=== PATIENT | male | born 1950 | race Asian ===

== ENCOUNTER 2016-07-09 10:06 | Inpatient (IN) | payer OTHER ==
[~2016-07-09 10:06] MED LIST: ALBUTEROL2 MG/5 ML PO; ALLO300T23 PO; ASPIRIN325 M1 PO; CARV12.5 PO; CARV6.25 PO; CLARITIN10 MG PO; CLON0.2D TD; CLOP75TA2 PO; LIPITOR10 MG PO; METOPROLOL25 M1 PO; RAMI10CA PO; SERT100T PO
== END 2016-08-09 08:00 | disposition still patient (30) ==
LOC: PAVC 10:06
PROVIDERS: ADMIT Internal Medicine
DX: Z51.89 Encounter for other specified aftercare (principal)

== ENCOUNTER 2016-08-09 09:00 | Inpatient (IN) | payer OTHER | END 2016-09-09 12:32 | disposition still patient (30) | LOC: PAVC 09:00 | PROVIDERS: ADMIT Internal Medicine | DX: Z51.89 Encounter for other specified aftercare (principal) ==

== ENCOUNTER 2016-09-09 12:45 | Inpatient (IN) | payer OTHER | END 2016-10-07 13:19 | disposition still patient (30) | LOC: PAVC 12:45 | PROVIDERS: ADMIT Internal Medicine | DX: Z51.89 Encounter for other specified aftercare (principal) ==

== ENCOUNTER 2016-10-07 13:29 | Inpatient (IN) | payer OTHER | END 2016-11-07 08:12 | disposition still patient (30) | LOC: PAVC 13:29 | PROVIDERS: ADMIT Internal Medicine | DX: Z51.89 Encounter for other specified aftercare (principal) ==

== ENCOUNTER 2016-10-16 02:37 | Outpatient (CLI) | payer OTHER ==
[2016-10-16 03:21] LABS: PLATELET COUNT 272 K/uL (142-355)
[2016-10-16 03:36] LABS: POTASSIUM 3.8 mmol/L (3.6-5.2); SODIUM 142 mmol/L (136-145)
== END 2016-10-16 19:14 | disposition home or self-care (01) ==
LOC: LAB 02:37
PROVIDERS: Internal Medicine
DX: I10 Essential (primary) hypertension (principal); I50.9 Heart failure, unspecified; M10.9 Gout, unspecified
CPT/HCPCS: 80053; 84550; 85027

== ENCOUNTER 2016-11-07 08:31 | Inpatient (IN) | payer OTHER | END 2016-12-07 10:55 | disposition still patient (30) | LOC: PAVC 08:31 | PROVIDERS: ADMIT Internal Medicine | DX: Z51.89 Encounter for other specified aftercare (principal) ==

== ENCOUNTER 2016-12-06 08:07 | Outpatient (CLI) | payer OTHER | END 2016-12-06 19:45 | disposition home or self-care (01) | LOC: LAB 08:07 | DX: Z16.24 Resistance to multiple antibiotics (principal) | CPT/HCPCS: 87081 ==

== ENCOUNTER 2016-12-07 11:15 | Inpatient (IN) | payer OTHER | END 2017-01-07 10:44 | disposition still patient (30) | LOC: PAVC 11:15 | PROVIDERS: ADMIT Internal Medicine | DX: Z51.89 Encounter for other specified aftercare (principal) ==

== ENCOUNTER 2017-01-07 10:52 | Inpatient (IN) | payer OTHER | END 2017-02-06 16:08 | disposition still patient (30) | LOC: PAVC 10:52 | PROVIDERS: ADMIT Internal Medicine | DX: Z51.89 Encounter for other specified aftercare (principal) ==

== ENCOUNTER 2017-02-06 16:24 | Inpatient (IN) | payer OTHER | END 2017-03-09 12:56 | disposition still patient (30) | LOC: PAVC 16:24 | PROVIDERS: ADMIT Internal Medicine | DX: Z51.89 Encounter for other specified aftercare (principal) ==

== ENCOUNTER 2017-03-09 13:57 | Inpatient (IN) | payer OTHER | END 2017-04-09 09:42 | disposition still patient (30) | LOC: PAVC 13:57 | PROVIDERS: ADMIT Internal Medicine | DX: Z51.89 Encounter for other specified aftercare (principal) ==

== ENCOUNTER 2017-04-09 10:19 | Inpatient (IN) | payer OTHER | END 2017-05-09 09:35 | disposition still patient (30) | LOC: PAVC 10:19 | PROVIDERS: ADMIT Internal Medicine | DX: Z51.89 Encounter for other specified aftercare (principal) ==

== ENCOUNTER 2017-04-15 06:18 | Outpatient (CLI) | payer OTHER ==
[2017-04-15 06:34] LABS: PLATELET COUNT 304 K/uL (142-355)
[2017-04-15 06:42] LABS: POTASSIUM 3.7 mmol/L (3.6-5.2); SODIUM 139 mmol/L (136-145)
== END 2017-04-15 07:20 | disposition home or self-care (01) ==
LOC: LAB 06:18
PROVIDERS: Internal Medicine
DX: I10 Essential (primary) hypertension (principal); I50.9 Heart failure, unspecified; M10.9 Gout, unspecified
CPT/HCPCS: 36415; 80053; 80061; 84550; 85027

== ENCOUNTER 2017-05-09 09:50 | Inpatient (IN) | payer OTHER | END 2017-06-09 14:18 | disposition still patient (30) | LOC: PAVC 09:50 | PROVIDERS: ADMIT Internal Medicine ==

== ENCOUNTER 2017-06-09 14:45 | Inpatient (IN) | payer OTHER | END 2017-07-09 10:28 | disposition still patient (30) | LOC: PAVC 14:45 | PROVIDERS: ADMIT Internal Medicine ==

== ENCOUNTER 2017-07-09 10:45 | Inpatient (IN) | payer OTHER | END 2017-08-09 10:56 | disposition still patient (30) | LOC: PAVC 10:45 | PROVIDERS: ADMIT Internal Medicine ==

== ENCOUNTER 2017-08-09 11:36 | Inpatient (IN) | payer OTHER | END 2017-09-09 11:11 | disposition still patient (30) | LOC: PAVC 11:36 | PROVIDERS: ADMIT Internal Medicine ==

== ENCOUNTER 2017-09-09 12:20 | Inpatient (IN) | payer OTHER | END 2017-10-07 10:36 | disposition still patient (30) | LOC: PAVC 12:20 | PROVIDERS: ADMIT Internal Medicine ==

== ENCOUNTER 2017-09-17 11:00 | Outpatient (CLI) | payer OTHER | END 2017-09-17 21:07 | disposition home or self-care (01) | LOC: RAD 11:00 | DX: R05 Cough (principal) ==

== ENCOUNTER 2017-10-07 10:47 | Inpatient (IN) | payer OTHER | END 2017-11-07 08:00 | disposition still patient (30) | LOC: PAVC 10:47 | PROVIDERS: ADMIT Internal Medicine ==

== ENCOUNTER 2017-10-15 05:20 | Outpatient (CLI) | payer OTHER ==
[2017-10-15 06:32] LABS: POTASSIUM 4.4 mmol/L (3.6-5.2)
[2017-10-15 06:37] LABS: PLATELET COUNT 271 K/uL (142-355)
== END 2017-10-15 21:16 | disposition home or self-care (01) ==
LOC: LAB 05:20
PROVIDERS: Internal Medicine
DX: Q24.5 Malformation of coronary vessels (principal)
CPT/HCPCS: 80053; 84550; 85027

== ENCOUNTER 2017-11-07 09:00 | Inpatient (IN) | payer OTHER | END 2017-12-07 10:26 | disposition still patient (30) | LOC: PAVC 09:00 | PROVIDERS: ADMIT Internal Medicine ==

== ENCOUNTER 2017-12-07 10:38 | Inpatient (IN) | payer OTHER | END 2018-01-07 10:22 | disposition still patient (30) | LOC: PAVC 10:38 | PROVIDERS: ADMIT Internal Medicine ==

== ENCOUNTER 2018-01-07 10:41 | Inpatient (IN) | payer OTHER | END 2018-02-06 15:04 | disposition still patient (30) | LOC: PAVC 10:41 | PROVIDERS: ADMIT Internal Medicine ==

== ENCOUNTER 2018-01-20 13:10 | Outpatient (CLI) | payer OTHER | END 2018-01-20 20:10 | disposition home or self-care (01) | LOC: US 13:10 | DX: I73.9 Peripheral vascular disease, unspecified (principal) ==

== ENCOUNTER 2018-02-06 15:23 | Inpatient (IN) | payer OTHER | END 2018-03-09 08:00 | disposition still patient (30) | LOC: PAVC 15:23 | PROVIDERS: ADMIT Internal Medicine ==

== ENCOUNTER 2018-03-09 09:00 | Inpatient (IN) | payer OTHER | END 2018-04-09 11:10 | disposition still patient (30) | LOC: PAVC 09:00 | PROVIDERS: ADMIT Internal Medicine ==

== ENCOUNTER 2018-04-09 11:26 | Inpatient (IN) | payer OTHER | END 2018-05-09 14:31 | disposition still patient (30) | LOC: PAVC 11:26 | PROVIDERS: ADMIT Internal Medicine ==

== ENCOUNTER 2018-04-15 05:55 | Outpatient (CLI) | payer OTHER ==
[2018-04-15 06:22] LABS: PLATELET COUNT 334 K/uL (142-355)
[2018-04-15 06:41] LABS: POTASSIUM 4.1 mmol/L (3.6-5.2)
== END 2018-04-15 23:23 | disposition home or self-care (01) ==
LOC: LAB 05:55
PROVIDERS: Internal Medicine
DX: M10.9 Gout, unspecified (principal); F03.90 Unspecified dementia, unspecified severity, without behavioral disturbance, psychotic disturbance, mood disturbance, and anxiety; Z79.899 Other long term (current) drug therapy
CPT/HCPCS: 36415; 80053; 80061; 84550; 85027

== ENCOUNTER 2018-05-09 15:19 | Inpatient (IN) | payer OTHER | END 2018-06-09 10:30 | disposition still patient (30) | LOC: PAVC 15:19 | PROVIDERS: ADMIT Internal Medicine ==

== ENCOUNTER 2018-06-09 11:07 | Inpatient (IN) | payer OTHER | END 2018-07-09 07:19 | disposition still patient (30) | LOC: PAVC 11:07 | PROVIDERS: ADMIT Internal Medicine ==

== ENCOUNTER 2018-06-16 06:24 | Outpatient (CLI) | payer OTHER | END 2018-06-16 20:08 | disposition home or self-care (01) | LOC: LAB 06:24 | DX: E55.9 Vitamin D deficiency, unspecified (principal) | CPT/HCPCS: 36415; 82306 ==

== ENCOUNTER 2018-07-09 07:36 | Inpatient (IN) | payer OTHER | END 2018-08-09 09:35 | disposition still patient (30) | LOC: PAVC 07:36 | PROVIDERS: ADMIT Internal Medicine ==

== ENCOUNTER 2018-08-09 09:45 | Inpatient (IN) | payer OTHER | END 2018-09-09 09:36 | disposition still patient (30) | LOC: PAVC 09:45 | PROVIDERS: ADMIT Internal Medicine ==

== ENCOUNTER 2018-09-09 09:49 | Inpatient (IN) | payer OTHER | END 2018-10-07 12:10 | disposition still patient (30) | LOC: PAVC 09:49 | PROVIDERS: ADMIT Internal Medicine | CPT/HCPCS: 82310 ==

== ENCOUNTER 2018-09-15 03:47 | Outpatient (CLI) | payer OTHER | END 2018-09-15 22:19 | LOC: LAB 03:47 | DX: E55.9 Vitamin D deficiency, unspecified (principal) | CPT/HCPCS: 82306 ==

== ENCOUNTER 2018-10-07 12:21 | Inpatient (IN) | payer OTHER | END 2018-11-07 12:29 | disposition still patient (30) | LOC: PAVC 12:21 | PROVIDERS: ADMIT Internal Medicine ==

== ENCOUNTER 2018-10-17 05:05 | Outpatient (CLI) | payer OTHER ==
[2018-10-17 05:59] LABS: PLATELET COUNT 361 K/uL (142-355)
[2018-10-17 06:46] LABS: POTASSIUM 4.1 mmol/L (3.6-5.2)
== END 2018-10-17 19:27 | disposition home or self-care (01) ==
LOC: LAB 05:05
PROVIDERS: Internal Medicine
DX: M10.9 Gout, unspecified (principal)
CPT/HCPCS: 36415; 80053; 84550; 85027

== ENCOUNTER 2018-11-07 12:42 | Inpatient (IN) | payer OTHER | END 2018-12-07 13:41 | disposition still patient (30) | LOC: PAVC 12:42 | PROVIDERS: ADMIT Internal Medicine ==

== ENCOUNTER 2018-11-22 04:36 | Outpatient (CLI) | payer OTHER | END 2018-11-22 22:44 | disposition home or self-care (01) | LOC: LAB 04:36 | DX: Z12.5 Encounter for screening for malignant neoplasm of prostate (principal) | CPT/HCPCS: 84153 ==

== ENCOUNTER 2018-12-07 13:56 | Inpatient (IN) | payer OTHER | END 2019-01-07 09:38 | disposition still patient (30) | LOC: PAVC 13:56 | PROVIDERS: ADMIT Internal Medicine | DX: Z51.89 Encounter for other specified aftercare (principal) ==

== ENCOUNTER 2018-12-29 06:23 | Outpatient (CLI) | payer OTHER | END 2018-12-29 20:45 | disposition home or self-care (01) | LOC: LABW 06:23 → LAB 06:23 | DX: D51.8 Other vitamin B12 deficiency anemias (principal); E55.9 Vitamin D deficiency, unspecified | CPT/HCPCS: 36415; 82306 ==

== ENCOUNTER 2019-01-07 09:57 | Inpatient (IN) | payer OTHER | END 2019-02-06 11:34 | disposition still patient (30) | LOC: PAVC 09:57 | PROVIDERS: ADMIT Internal Medicine ==

== ENCOUNTER 2019-02-06 11:56 | Inpatient (IN) | payer OTHER | END 2019-03-09 11:52 | disposition still patient (30) | LOC: PAVC 11:56 | PROVIDERS: ADMIT Internal Medicine ==

== ENCOUNTER 2019-03-09 12:59 | Inpatient (IN) | payer OTHER | END 2019-04-09 17:15 | disposition still patient (30) | LOC: PAVC 12:59 | PROVIDERS: ADMIT Internal Medicine ==

== ENCOUNTER 2019-04-09 17:33 | Inpatient (IN) | payer OTHER | END 2019-05-09 12:56 | disposition still patient (30) | LOC: PAVC 17:33 | PROVIDERS: ADMIT Internal Medicine ==

== ENCOUNTER 2019-04-11 09:43 | Outpatient (CLI) | payer OTHER ==
[2019-04-11 10:05] LABS: POTASSIUM 4.4 mmol/L (3.6-5.2)
[2019-04-11 10:14] LABS: PLATELET COUNT 381 K/uL (142-355)
== END 2019-04-11 22:52 | disposition home or self-care (01) ==
LOC: LAB 09:43
PROVIDERS: Internal Medicine
DX: M10.9 Gout, unspecified (principal); I10 Essential (primary) hypertension; I25.119 Atherosclerotic heart disease of native coronary artery with unspecified angina pectoris; E78.49 Other hyperlipidemia
CPT/HCPCS: 80053; 80061; 84550; 85027

== ENCOUNTER 2019-05-09 13:22 | Inpatient (IN) | payer OTHER | END 2019-06-09 14:04 | disposition still patient (30) | LOC: PAVC 13:22 | PROVIDERS: ADMIT Internal Medicine ==

== ENCOUNTER 2019-06-09 14:23 | Inpatient (IN) | payer OTHER | END 2019-07-09 08:00 | disposition still patient (30) | LOC: PAVC 14:23 | PROVIDERS: ADMIT Internal Medicine ==

== ENCOUNTER 2019-06-15 04:55 | Outpatient (CLI) | payer OTHER | END 2019-06-15 20:38 | disposition home or self-care (01) | LOC: LAB 04:55 | DX: E55.9 Vitamin D deficiency, unspecified (principal) | CPT/HCPCS: 82306 ==

== ENCOUNTER 2019-07-09 11:00 | Inpatient (IN) | payer OTHER | END 2019-08-09 09:29 | disposition still patient (30) | LOC: PAVC 11:00 | PROVIDERS: ADMIT Internal Medicine ==

== ENCOUNTER 2019-08-09 09:46 | Inpatient (IN) | payer OTHER | END 2019-09-09 10:44 | disposition still patient (30) | LOC: PAVC 09:46 | PROVIDERS: ADMIT Internal Medicine ==

== ENCOUNTER 2019-09-09 11:04 | Inpatient (IN) | payer OTHER | END 2019-10-08 14:09 | disposition still patient (30) | LOC: PAVC 11:04 | PROVIDERS: ADMIT Internal Medicine ==

== ENCOUNTER 2019-10-08 14:27 | Inpatient (IN) | payer OTHER | END 2019-11-08 11:34 | disposition still patient (30) | LOC: PAVC 14:27 | PROVIDERS: ADMIT Internal Medicine ==

== ENCOUNTER 2019-10-09 06:03 | Outpatient (CLI) | payer OTHER ==
[2019-10-09 06:46] LABS: PLATELET COUNT 418 K/uL (142-355)
[2019-10-09 07:04] LABS: POTASSIUM 4.5 mmol/L (3.6-5.2)
== END 2019-10-09 19:09 | disposition home or self-care (01) ==
LOC: LAB 06:03
PROVIDERS: Internal Medicine
DX: I25.10 Atherosclerotic heart disease of native coronary artery without angina pectoris (principal); I50.9 Heart failure, unspecified; I10 Essential (primary) hypertension; E55.9 Vitamin D deficiency, unspecified
CPT/HCPCS: 80053; 82306; 84550; 85027

== ENCOUNTER 2019-11-08 12:01 | Inpatient (IN) | payer OTHER ==
[2019-12-02] MEDS ORDERED: ASCORBIC ACID 250 MG PO (17:57)
[2019-12-02] MEDS ORDERED: BENEPROTEIN6 GM PO (17:58)
[2019-12-02] MEDS ORDERED: CLON0.3D TD (17:59)
[2019-12-02] MEDS ORDERED: MIRALAX3350 N1 PO (18:01)
[2019-12-02] MEDS ORDERED: VITA D-1000 PO (18:02)
[2019-12-02] MEDS ORDERED: ZESTRIL40 MG PO (18:03)
[2019-12-02] MEDS ORDERED: AZIT250T3 PO (18:04)
[2019-12-02] MEDS ORDERED: CETI10TA PO (18:05)
[2019-12-02] MEDS ORDERED: ALLO100T22 PO (18:05)
[2019-12-02] MEDS ORDERED: DOCU100C10 PO (18:07)
[2019-12-02] MEDS ORDERED: [UNRECOGNIZED DRUG - CODE] PO (18:07)
[2019-12-02] MEDS ORDERED: CARV25TA PO (18:08)
[2019-12-02] MEDS ORDERED: AMLODIPINE BESYLATE PO (18:09)
[2019-12-02] MEDS ORDERED: COSOPT1 ML OPTH (18:09)
[2019-12-02] MEDS ORDERED: HYDR200T3 PO (18:10)
== END 2019-12-08 11:20 | disposition still patient (30) ==
LOC: PAVC 12:01
PROVIDERS: ADMIT Internal Medicine

== ENCOUNTER 2019-11-10 14:30 | Outpatient (CLI) | payer OTHER | END 2019-11-10 23:32 | disposition home or self-care (01) | LOC: LAB 14:30 | DX: N39.0 Urinary tract infection, site not specified (principal); R41.82 Altered mental status, unspecified | CPT/HCPCS: 81000; 87077; 87086; 87088; 87186 ==

== ENCOUNTER 2019-11-21 18:51 | Outpatient (CLI) | payer OTHER | END 2019-11-21 22:26 | disposition home or self-care (01) | LOC: LABW 18:51 | DX: E07.89 Other specified disorders of thyroid (principal); R82.998 Other abnormal findings in urine | CPT/HCPCS: 81000 ==

== ENCOUNTER 2019-12-01 17:18 | Emergency (ER) | payer OTHER ==
[~2019-12-01] VITALS: Ht 175.3 cm; Wt 77.1 kg
[2019-12-01 18:27] LABS: PLATELET COUNT 309 K/uL (142-355)
[2019-12-01 18:35] LABS: POTASSIUM 3.7 mmol/L (3.6-5.2)
[2019-12-01 21:05] VITALS: BP 105/76; TEMP 99
[2019-12-02] MEDS ORDERED: ASCORBIC ACID 250 MG PO (17:57)
[2019-12-02] MEDS ORDERED: BENEPROTEIN6 GM PO (17:58)
[2019-12-02] MEDS ORDERED: CLON0.3D TD (17:59)
[2019-12-02] MEDS ORDERED: MIRALAX3350 N1 PO (18:01)
[2019-12-02] MEDS ORDERED: VITA D-1000 PO (18:02)
[2019-12-02] MEDS ORDERED: ZESTRIL40 MG PO (18:03)
[2019-12-02] MEDS ORDERED: AZIT250T3 PO (18:04)
[2019-12-02] MEDS ORDERED: ALLO100T22 PO (18:05)
[2019-12-02] MEDS ORDERED: CETI10TA PO (18:05)
[2019-12-02] MEDS ORDERED: [UNRECOGNIZED DRUG - CODE] PO (18:07)
[2019-12-02] MEDS ORDERED: DOCU100C10 PO (18:07)
[2019-12-02] MEDS ORDERED: CARV25TA PO (18:08)
[2019-12-02] MEDS ORDERED: AMLODIPINE BESYLATE PO (18:09)
[2019-12-02] MEDS ORDERED: COSOPT1 ML OPTH (18:09)
[2019-12-02] MEDS ORDERED: HYDR200T3 PO (18:10)
== END 2019-12-01 21:10 ==
LOC: ED 17:18
PROVIDERS: Family Medicine
DX: J12.89 Other viral pneumonia (principal); U07.1 COVID-19
CPT/HCPCS: 36415; 80053; 81000; 84484; 85027; 93005; 99284

== ENCOUNTER 2019-12-02 09:50 | Inpatient (IN) | payer OTHER ==
[2019-12-02] VITALS (8 sets, daily range): BP systolic 103–146; BP diastolic 70–90; TEMP 97.1–98.7; Ht 172.7 cm; Wt 51.3 kg
[~2019-12-02] VITALS: Ht 172.7 cm; Wt 51.3 kg
[2019-12-02 12:01] LABS: PLATELET COUNT 315 K/uL (142-355)
[2019-12-02 12:05] LABS: POTASSIUM 3.6 mmol/L (3.6-5.2)
[2019-12-02] MEDS ORDERED: ASCORBIC ACID 250 MG PO (17:57)
[2019-12-02] MEDS ORDERED: BENEPROTEIN6 GM PO (17:58)
[2019-12-02] MEDS ORDERED: CLON0.3D TD (17:59)
[2019-12-02] MEDS ORDERED: MIRALAX3350 N1 PO (18:01)
[2019-12-02] MEDS ORDERED: VITA D-1000 PO (18:02)
[2019-12-02] MEDS ORDERED: ZESTRIL40 MG PO (18:03)
[2019-12-02] MEDS ORDERED: AZIT250T3 PO (18:04)
[2019-12-02] MEDS ORDERED: CETI10TA PO (18:05)
[2019-12-02] MEDS ORDERED: ALLO100T22 PO (18:05)
[2019-12-02] MEDS ORDERED: [UNRECOGNIZED DRUG - CODE] PO (18:07)
[2019-12-02] MEDS ORDERED: DOCU100C10 PO (18:07)
[2019-12-02] MEDS ORDERED: CARV25TA PO (18:08)
[2019-12-02] MEDS ORDERED: AMLODIPINE BESYLATE PO (18:09)
[2019-12-02] MEDS ORDERED: COSOPT1 ML OPTH (18:09)
[2019-12-02] MEDS ORDERED: HYDR200T3 PO (18:10)
[2019-12-03] VITALS (21 sets, daily range): BP systolic 107–133; BP diastolic 77–93; TEMP 98.2–98.8
[2019-12-03 08:25] LABS: PLATELET COUNT 383 K/uL (142-355)
[2019-12-03 08:34] LABS: POTASSIUM 3.3 mmol/L (3.6-5.2)
[2019-12-04] VITALS (19 sets, daily range): BP systolic 103–148; BP diastolic 70–99; TEMP 96.9–99.9
[2019-12-04 06:12] LABS: PLATELET COUNT 388 K/uL (142-355)
[2019-12-04 06:32] LABS: POTASSIUM 2.9 mmol/L (3.6-5.2)
[2019-12-05] VITALS (22 sets, daily range): BP systolic 121–196; BP diastolic 84–117; TEMP 97.6–98.4
[2019-12-05 06:09] LABS: PLATELET COUNT 393 K/uL (142-355)
[2019-12-06] VITALS (23 sets, daily range): BP systolic 135–207; BP diastolic 83–102; TEMP 97.6–99.1
[2019-12-06 06:23] LABS: PLATELET COUNT 458 K/uL (142-355)
[2019-12-07] VITALS (21 sets, daily range): BP systolic 114–183; BP diastolic 81–121; TEMP 97.8–98.9
[2019-12-07 10:52] LABS: PLATELET COUNT 545 K/uL (142-355)
[2019-12-07 11:06] LABS: POTASSIUM 3.3 mmol/L (3.6-5.2)
[2019-12-08] VITALS (16 sets, daily range): BP systolic 127–183; BP diastolic 85–104; TEMP 98.7–99.3
[2019-12-09] VITALS (25 sets, daily range): BP systolic 130–177; BP diastolic 85–103; TEMP 98.1–99.7
[2019-12-09 10:41] LABS: PLATELET COUNT 500 K/uL (142-355)
[2019-12-09 10:52] LABS: POTASSIUM 3.8 mmol/L (3.6-5.2)
[2019-12-10] VITALS (23 sets, daily range): BP systolic 130–169; BP diastolic 82–106; TEMP 96.8–98.7
[2019-12-11] VITALS (21 sets, daily range): BP systolic 125–175; BP diastolic 91–118; TEMP 96.9–98.3
[2019-12-12] VITALS (22 sets, daily range): BP systolic 123–174; BP diastolic 77–115; TEMP 97.6–98
[2019-12-12 06:50] LABS: PLATELET COUNT 656 K/uL (142-355)
[2019-12-12 06:57] LABS: POTASSIUM 4.3 mmol/L (3.6-5.2)
[2019-12-13] VITALS (24 sets, daily range): BP systolic 121–161; BP diastolic 80–113; TEMP 97.5–98.9
[2019-12-13 05:57] LABS: PLATELET COUNT 466 K/uL (142-355)
[2019-12-13 06:26] LABS: POTASSIUM 4.4 mmol/L (3.6-5.2)
[2019-12-14] VITALS (23 sets, daily range): BP systolic 128–168; BP diastolic 92–125; TEMP 97.7–98.9
[2019-12-14 06:14] LABS: PLATELET COUNT 439 K/uL (142-355)
[2019-12-14 06:25] LABS: POTASSIUM 4.1 mmol/L (3.6-5.2)
[2019-12-15] VITALS (15 sets, daily range): BP systolic 129–167; BP diastolic 89–115; TEMP 96.9–98.1
[2019-12-15 11:00] LABS: PLATELET COUNT 494 K/uL (142-355)
[2019-12-15 11:12] LABS: POTASSIUM 4.1 mmol/L (3.6-5.2)
== END 2019-12-15 14:15 | DRG 177 ==
LOC: MED/SURG 09:50 → PCU 09:50
PROVIDERS: Internal Medicine; ADMIT Internal Medicine Endocrinology, Diabetes & Metabolism
DX: U07.1 COVID-19 (principal); J96.01 Acute respiratory failure with hypoxia; J18.8 Other pneumonia, unspecified organism; G40.802 Other epilepsy, not intractable, without status epilepticus; N17.9 Acute kidney failure, unspecified; E46 Unspecified protein-calorie malnutrition; I25.10 Atherosclerotic heart disease of native coronary artery without angina pectoris; E78.49 Other hyperlipidemia; Z86.73 Personal history of transient ischemic attack (TIA), and cerebral infarction without residual deficits; M10.9 Gout, unspecified; I95.89 Other hypotension; I10 Essential (primary) hypertension; E87.6 Hypokalemia
CPT/HCPCS: 36415; 80053; 83735; 85027; 87070; 87205; 94760; 97667; J0360; J0696; J1650; J2060; J3490; J7120

== ENCOUNTER 2020-01-08 11:32 | Inpatient (IN) | payer OTHER ==
[~2020-01-08 11:32] MED LIST changes: +ALLO100T22 PO; +AMLODIPINE BESYLATE PO; +ASCORBIC ACID 250 MG PO; +AZIT250T3 PO; +BENEPROTEIN6 GM PO; +CARV25TA PO; +CETI10TA PO; +CLON0.3D TD; +COSOPT1 ML OPTH; +DOCU100C10 PO; +HYDR200T3 PO; +MIRALAX3350 N1 PO; +VITA D-1000 PO; +ZESTRIL40 MG PO; +[UNRECOGNIZED DRUG - CODE] PO
== END 2020-02-07 11:54 | disposition still patient (30) ==
LOC: PAVC 11:32
PROVIDERS: ADMIT Internal Medicine
CPT/HCPCS: 87635; U0002

== ENCOUNTER 2020-02-07 12:01 | Inpatient (IN) | payer OTHER | END 2020-03-09 10:11 | disposition still patient (30) | LOC: PAVC 12:01 | PROVIDERS: ADMIT Internal Medicine ==

== ENCOUNTER 2020-03-09 10:20 | Inpatient (IN) | payer OTHER ==
[2020-03-24] MEDS ORDERED: MULTIVITAMI1 PO (05:07)
[2020-03-28] MEDS ORDERED: METH5TAB6 PO (13:29)
[2020-03-28] MEDS ORDERED: LEVAQUIN250 MG PEG (13:30)
[2020-04-08] MEDS ORDERED: CARV6.25 PO (12:34)
[2020-04-08] MEDS ORDERED: DIGO0.2549 PO (12:35)
[2020-04-08] MEDS ORDERED: DILT30TA24 PO (12:36)
[2020-04-08] MEDS ORDERED: FAMOTIDINE20 MG PO (12:36)
== END 2020-04-09 14:00 | disposition still patient (30) ==
LOC: PAVC 10:20
PROVIDERS: ADMIT Internal Medicine
DX: J69.0 Pneumonitis due to inhalation of food and vomit (principal); R13.12 Dysphagia, oropharyngeal phase; F03.91 Unspecified dementia, unspecified severity, with behavioral disturbance; I69.959 Hemiplegia and hemiparesis following unspecified cerebrovascular disease affecting unspecified side; H54.8 Legal blindness, as defined in USA; I10 Essential (primary) hypertension; I25.10 Atherosclerotic heart disease of native coronary artery without angina pectoris; E55.9 Vitamin D deficiency, unspecified

== ENCOUNTER 2020-03-22 11:50 | Outpatient (CLI) | payer OTHER ==
[2020-03-22 12:19] LABS: PLATELET COUNT 627 K/uL (142-355)
[2020-03-22 12:35] LABS: POTASSIUM 5.1 mmol/L (3.6-5.2)
== END 2020-03-22 23:02 | disposition home or self-care (01) ==
LOC: LAB 11:50
PROVIDERS: Internal Medicine
DX: R41.82 Altered mental status, unspecified (principal)
CPT/HCPCS: 80053; 85027

== ENCOUNTER 2020-03-23 19:56 | Inpatient (IN) | payer OTHER ==
[~2020-03-23] VITALS: Ht 172.7 cm; Wt 70.6 kg
[2020-03-23 20:00] VITALS: BP 152/91; TEMP 98.7
[2020-03-23 20:30] VITALS: BP 152/91
[2020-03-23 21:30] LABS: POTASSIUM 4.4 mmol/L (3.6-5.2); SODIUM 147 mmol/L (136-145)
[2020-03-23 21:40] LABS: PARTIAL THROMBOPLASTIN TIME 27.6 SECONDS (24.5-33.6)
[2020-03-23 21:46] LABS: PLATELET COUNT 586 K/uL (142-355)
[2020-03-23 23:00] VITALS: BP 97/73
[2020-03-24] VITALS (7 sets, daily range): BP systolic 98–138; BP diastolic 60–87; TEMP 96.4–99.3; Ht 172.7 cm; Wt 70.6 kg
[2020-03-24] MEDS ORDERED: MULTIVITAMI1 PO (05:07)
[2020-03-24 05:42] LABS: POTASSIUM 4.2 mmol/L (3.6-5.2)
[2020-03-24 05:53] LABS: PLATELET COUNT 469 K/uL (142-355)
[2020-03-25 04:00] VITALS: BP 115/82; TEMP 98.4
[2020-03-25 05:52] LABS: PLATELET COUNT 423 K/uL (142-355)
[2020-03-25 05:58] LABS: POTASSIUM 3.9 mmol/L (3.6-5.2)
[2020-03-25 08:00] VITALS: BP 106/78; TEMP 97.3
[2020-03-25 12:00] VITALS: BP 102/70; TEMP 98.6
[2020-03-25 16:00] VITALS: BP 106/74; TEMP 97.9
[2020-03-25 20:00] VITALS: BP 113/73; TEMP 98.5
[2020-03-26 00:11] VITALS: BP 112/76; TEMP 98.8
[2020-03-26 04:00] VITALS: BP 113/76; TEMP 98.1
[2020-03-26 05:42] LABS: PLATELET COUNT 373 K/uL (142-355)
[2020-03-26 08:00] VITALS: BP 131/87; TEMP 97.9
[2020-03-26 12:00] VITALS: BP 111/71; TEMP 97.5
[2020-03-26 16:00] VITALS: BP 127/97; TEMP 97.9
[2020-03-26 20:00] VITALS: BP 133/90; TEMP 98.3
[2020-03-27] VITALS (11 sets, daily range): BP systolic 121–150; BP diastolic 55–99; TEMP 97.4–98.8
[2020-03-27 05:32] LABS: POTASSIUM 4.3 mmol/L (3.6-5.2)
[2020-03-27 05:37] LABS: PLATELET COUNT 431 K/uL (142-355)
[2020-03-28 03:30] VITALS: BP 136/98; TEMP 98.4
[2020-03-28 08:00] VITALS: BP 142/79; TEMP 97.8
[2020-03-28 12:00] VITALS: BP 134/84; TEMP 97.9
[2020-03-28] MEDS ORDERED: METH5TAB6 PO (13:29)
[2020-03-28] MEDS ORDERED: LEVAQUIN250 MG PEG (13:30)
[2020-03-28 16:00] VITALS: BP 135/72; TEMP 98.1
[2020-03-28 20:21] VITALS: BP 131/101; TEMP 98.5
[2020-03-28 23:46] VITALS: BP 130/87; TEMP 98.9
[2020-03-29 03:32] VITALS: BP 126/79; TEMP 98.6
[2020-03-29 08:00] VITALS: BP 112/83; TEMP 97.6
== END 2020-03-29 09:23 | DRG 177 ==
LOC: ED 19:56 → MED/SURG 22:31
PROVIDERS: Internal Medicine; Internal Medicine Endocrinology, Diabetes & Metabolism; ADMIT Family Medicine
DX: J69.0 Pneumonitis due to inhalation of food and vomit (principal); J96.01 Acute respiratory failure with hypoxia; N17.9 Acute kidney failure, unspecified; E87.1 Hypo-osmolality and hyponatremia; I10 Essential (primary) hypertension; I25.10 Atherosclerotic heart disease of native coronary artery without angina pectoris; F03.90 Unspecified dementia, unspecified severity, without behavioral disturbance, psychotic disturbance, mood disturbance, and anxiety; I69.891 Dysphagia following other cerebrovascular disease; R13.19 Other dysphagia; D72.828 Other elevated white blood cell count; E87.8 Other disorders of electrolyte and fluid balance, not elsewhere classified; H40.89 Other specified glaucoma
CPT/HCPCS: 36415; 36600; 80048; 80053; 81000; 82550; 82553; 82805; 83605; 83880; 84439; 84443; 84480; 84484; 85007; 85027; 85610; 85730; 87040; 87635; 94760; 96374; 99284; J0132; J0360; J0456; J0696; J1100; J1650; J2930; J3490; U0003

== ENCOUNTER 2020-03-29 15:20 | Outpatient (CLI) | payer OTHER ==
[~2020-03-29 15:20] MED LIST changes: +LEVAQUIN250 MG PEG; +METH5TAB6 PO; +MULTIVITAMI1 PO
== END 2020-03-29 20:54 | disposition home or self-care (01) ==
LOC: US 15:20
DX: E07.89 Other specified disorders of thyroid (principal)

== ENCOUNTER 2020-04-02 12:53 | Inpatient (IN) | payer OTHER ==
[~2020-04-02] VITALS: Ht 167.6 cm; Wt 70.1 kg
[2020-04-02] VITALS (7 sets, daily range): BP systolic 101–125; BP diastolic 67–93; TEMP 98.3–98.9
[2020-04-02 14:16] LABS: PLATELET COUNT 487 K/uL (142-355)
[2020-04-02 14:27] LABS: POTASSIUM 3.9 mmol/L (3.6-5.2); SODIUM 140 mmol/L (136-145)
[2020-04-03] VITALS (8 sets, daily range): BP systolic 120–152; BP diastolic 81–114; TEMP 97.8–99.1; Ht 167.6 cm; Wt 70.1 kg
[2020-04-03 05:39] LABS: PLATELET COUNT 445 K/uL (142-355)
[2020-04-03 05:56] LABS: POTASSIUM 4.1 mmol/L (3.6-5.2)
[2020-04-04 04:00] VITALS: BP 142/102; TEMP 98
[2020-04-04 08:00] VITALS: BP 141/94; TEMP 97.8
[2020-04-04 10:04] LABS: PLATELET COUNT 493 K/uL (142-355)
[2020-04-04 12:00] VITALS: BP 139/89; TEMP 97.7
[2020-04-04 16:00] VITALS: BP 134/84; TEMP 97.6
[2020-04-04 20:00] VITALS: BP 125/86; TEMP 98.8
[2020-04-05] VITALS: BP 157/101; TEMP 98.9
[2020-04-05 04:00] VITALS: BP 159/108; TEMP 97.9
[2020-04-05 04:40] LABS: POTASSIUM 3.6 mmol/L (3.6-5.2)
[2020-04-05 04:42] LABS: PLATELET COUNT 419 K/uL (142-355)
[2020-04-05 07:41] VITALS: BP 140/94; TEMP 98.3
[2020-04-05 12:00] VITALS: BP 135/87; TEMP 98.4
[2020-04-05 15:48] VITALS: BP 115/75; TEMP 98
[2020-04-05 20:04] VITALS: BP 103/73; TEMP 98.8
[2020-04-06] VITALS (7 sets, daily range): BP systolic 102–150; BP diastolic 63–94; TEMP 97.6–98.7
[2020-04-06 06:04] LABS: POTASSIUM 4.4 mmol/L (3.6-5.2)
[2020-04-07 03:59] VITALS: BP 136/89; TEMP 98.4
[2020-04-07 06:23] LABS: POTASSIUM 3.8 mmol/L (3.6-5.2)
[2020-04-07 06:24] LABS: PLATELET COUNT 365 K/uL (142-355)
[2020-04-07 08:00] VITALS: BP 138/98; TEMP 98.8
[2020-04-07 11:58] VITALS: BP 113/76; TEMP 98.4
[2020-04-07 16:00] VITALS: BP 139/87; TEMP 98.9
[2020-04-07 20:00] VITALS: BP 130/96; TEMP 99.4
[2020-04-08] VITALS: BP 136/90; TEMP 98.4
[2020-04-08 04:00] VITALS: BP 144/98; TEMP 98.1
[2020-04-08 08:00] VITALS: BP 129/87; TEMP 97.9
[2020-04-08 12:00] VITALS: BP 148/93; TEMP 97.9
[2020-04-08] MEDS ORDERED: CARV6.25 PO (12:34)
[2020-04-08] MEDS ORDERED: DIGO0.2549 PO (12:35)
[2020-04-08] MEDS ORDERED: FAMOTIDINE20 MG PO (12:36)
[2020-04-08] MEDS ORDERED: DILT30TA24 PO (12:36)
== END 2020-04-08 15:40 | DRG 310 ==
LOC: ED 12:53 → MED/SURG 16:55
PROVIDERS: Internal Medicine Endocrinology, Diabetes & Metabolism; ADMIT Family Medicine
DX: I47.1 Supraventricular tachycardia (principal); I25.10 Atherosclerotic heart disease of native coronary artery without angina pectoris; I10 Essential (primary) hypertension; R47.02 Dysphasia; E86.0 Dehydration; E78.49 Other hyperlipidemia; H40.89 Other specified glaucoma; Z93.1 Gastrostomy status
CPT/HCPCS: 36415; 80048; 80053; 81000; 83880; 84443; 84484; 85027; 93005; 96360; 99284; J0360; J1160; J1650; J1956; J3490

== ENCOUNTER 2020-04-09 14:19 | Inpatient (IN) | payer OTHER ==
[~2020-04-09 14:19] MED LIST changes: +DIGO0.2549 PO; +DILT30TA24 PO; +FAMOTIDINE20 MG PO
[2020-04-11 09:53] LABS: PLATELET COUNT 393 K/uL (142-355)
== END 2020-05-09 14:07 | disposition still patient (30) ==
LOC: PAVC 14:19
PROVIDERS: ADMIT Internal Medicine
DX: J69.0 Pneumonitis due to inhalation of food and vomit (principal); R13.12 Dysphagia, oropharyngeal phase; I47.1 Supraventricular tachycardia; Z93.1 Gastrostomy status; R47.02 Dysphasia; I69.959 Hemiplegia and hemiparesis following unspecified cerebrovascular disease affecting unspecified side; I10 Essential (primary) hypertension; F03.91 Unspecified dementia, unspecified severity, with behavioral disturbance; I25.10 Atherosclerotic heart disease of native coronary artery without angina pectoris; H40.1134 Primary open-angle glaucoma, bilateral, indeterminate stage
CPT/HCPCS: 80053; 80061; 80162; 82306; 84153; 84550; 85027

== ENCOUNTER 2020-04-29 06:14 | Outpatient (CLI) | payer OTHER | END 2020-04-29 19:02 | disposition home or self-care (01) | LOC: LAB 06:14 | DX: E05.90 Thyrotoxicosis, unspecified without thyrotoxic crisis or storm (principal) | CPT/HCPCS: 84439; 84443; 84481 ==

== ENCOUNTER 2020-05-09 14:53 | Inpatient (IN) | payer OTHER | END 2020-06-09 08:00 | disposition still patient (30) | LOC: PAVC 14:53 | PROVIDERS: ADMIT Internal Medicine | DX: J69.0 Pneumonitis due to inhalation of food and vomit (principal); R13.12 Dysphagia, oropharyngeal phase; I47.1 Supraventricular tachycardia; Z93.1 Gastrostomy status; R47.02 Dysphasia; I69.959 Hemiplegia and hemiparesis following unspecified cerebrovascular disease affecting unspecified side; I10 Essential (primary) hypertension; F03.91 Unspecified dementia, unspecified severity, with behavioral disturbance; I25.10 Atherosclerotic heart disease of native coronary artery without angina pectoris; H40.1134 Primary open-angle glaucoma, bilateral, indeterminate stage ==

== ENCOUNTER 2020-06-09 09:00 | Inpatient (IN) | payer OTHER | END 2020-07-09 12:23 | disposition still patient (30) | LOC: PAVC 09:00 | PROVIDERS: ADMIT Internal Medicine; ATTEND Internal Medicine ==

== ENCOUNTER 2020-07-09 12:32 | Inpatient (IN) | payer OTHER | END 2020-08-09 09:46 | disposition still patient (30) | LOC: PAVC 12:32 | PROVIDERS: ADMIT Internal Medicine; ATTEND Internal Medicine ==

== ENCOUNTER 2020-07-31 07:15 | Outpatient (CLI) | payer OTHER | END 2020-07-31 19:52 | disposition home or self-care (01) | LOC: LAB 07:15 | PROVIDERS: ATTEND Internal Medicine | DX: R94.6 Abnormal results of thyroid function studies (principal) | CPT/HCPCS: 84436; 84443; 84481 ==

== ENCOUNTER 2020-08-09 09:54 | Inpatient (IN) | payer OTHER | END 2020-09-09 15:29 | disposition still patient (30) | LOC: PAVC 09:54 | PROVIDERS: ADMIT Internal Medicine; ATTEND Internal Medicine ==

== ENCOUNTER 2020-09-10 10:18 | Inpatient (IN) | payer OTHER ==
[2020-09-10] VITALS (15 sets, daily range): BP systolic 147–217; BP diastolic 90–143; TEMP 99.2–103.3; Ht 167.6 cm; Wt 69.4 kg
[~2020-09-10] VITALS: Ht 167.6 cm; Wt 69.4 kg
[2020-09-10 10:54] LABS: SODIUM 144 mmol/L (136-145)
[2020-09-10 10:55] LABS: PLATELET COUNT 479 K/uL (142-355)
[2020-09-11] VITALS (7 sets, daily range): BP systolic 112–149; BP diastolic 83–99; TEMP 98.2–100.4
[2020-09-11] MEDS ORDERED: ALLO100T22 PEG (03:50)
[2020-09-11] MEDS ORDERED: [UNRECOGNIZED DRUG - OTHER] PEG (03:52)
[2020-09-11] MEDS ORDERED: LIPITOR10 MG PEG (03:53)
[2020-09-11] MEDS ORDERED: BENEPROTEIN6 GM PEG (03:54)
[2020-09-11] MEDS ORDERED: CETI10TA PEG (03:55)
[2020-09-11] MEDS ORDERED: VITAMIN D1000 UNI1 PEG (03:56)
[2020-09-11] MEDS ORDERED: CARV6.25 PEG (03:57)
[2020-09-11] MEDS ORDERED: CLOP75TA2 PEG (03:58)
[2020-09-11] MEDS ORDERED: FURO20TA67 PEG (03:59)
[2020-09-11] MEDS ORDERED: DIGOXIN250 MCG PEG (03:59)
[2020-09-11] MEDS ORDERED: MULTIVITAMIN1 TA1 PEG (04:00)
[2020-09-11] MEDS ORDERED: MIRALAX17 GM PEG (04:01)
[2020-09-11] MEDS ORDERED: DOCU100C10 PEG (04:02)
[2020-09-11] MEDS ORDERED: CALCIUM +D PEG (04:02)
[2020-09-11] MEDS ORDERED: PEPCID20 MG PEG (04:03)
[2020-09-11] MEDS ORDERED: TRANSDERM SCOP1.5 MG TD (04:04)
[2020-09-11 05:35] LABS: PLATELET COUNT 358 K/uL (142-355)
[2020-09-11 05:51] LABS: POTASSIUM 3.6 mmol/L (3.6-5.2)
[2020-09-12] VITALS: BP 183/119; TEMP 99.6
[2020-09-12 03:48] VITALS: BP 166/110; TEMP 100.3
[2020-09-12 05:49] LABS: PLATELET COUNT 339 K/uL (142-355)
[2020-09-12 06:27] LABS: POTASSIUM 4.4 mmol/L (3.6-5.2)
[2020-09-12 08:00] VITALS: BP 173/111; TEMP 100.8
[2020-09-12 12:00] VITALS: BP 164/98; TEMP 99.7
[2020-09-12 16:00] VITALS: BP 147/87; TEMP 100.6
[2020-09-12 20:00] VITALS: BP 142/96; TEMP 99.3
[2020-09-13 00:11] VITALS: BP 128/86; TEMP 100.1
[2020-09-13 04:27] VITALS: BP 146/100; TEMP 99.7
[2020-09-13 06:04] LABS: POTASSIUM 4.6 mmol/L (3.6-5.2)
[2020-09-13 06:31] LABS: PLATELET COUNT 297 K/uL (142-355)
[2020-09-13 08:00] VITALS: BP 139/95; TEMP 99.3
[2020-09-13 12:00] VITALS: BP 144/97; TEMP 101.1
[2020-09-13 16:00] VITALS: BP 133/84; TEMP 100.7
[2020-09-13 20:00] VITALS: BP 119/82; TEMP 99
[2020-09-14] VITALS: BP 122/82; TEMP 98.9
[2020-09-14 04:00] VITALS: BP 124/87; TEMP 97.8
[2020-09-14 05:48] LABS: PLATELET COUNT 312 K/uL (142-355)
[2020-09-14 07:39] VITALS: BP 191/119; TEMP 101.6
[2020-09-14 11:31] VITALS: BP 121/70; TEMP 102.8
[2020-09-14 16:00] VITALS: BP 97/50; TEMP 98.3
[2020-09-14 20:00] VITALS: BP 131/76; TEMP 99.4
[2020-09-15] VITALS: BP 137/80; TEMP 100.8
[2020-09-15 04:00] VITALS: BP 120/84; TEMP 100.4
[2020-09-15 05:13] LABS: PLATELET COUNT 289 K/uL (142-355)
[2020-09-15 05:27] LABS: POTASSIUM 4.2 mmol/L (3.6-5.2)
[2020-09-15 08:00] VITALS: BP 131/82; TEMP 99.6
[2020-09-15 12:02] VITALS: BP 98/63; TEMP 100.2
== END 2020-09-15 13:37 | disposition expired | DRG 100 ==
LOC: ED 10:20 → MED/SURG 16:41
PROVIDERS: ADMIT Family Medicine; ATTEND Internal Medicine
DX: G40.802 Other epilepsy, not intractable, without status epilepticus (principal); J18.8 Other pneumonia, unspecified organism; E87.0 Hyperosmolality and hypernatremia; I10 Essential (primary) hypertension; I69.391 Dysphagia following cerebral infarction; R13.19 Other dysphagia
CPT/HCPCS: 36415; 51702; 80048; 80053; 81000; 82550; 84484; 85027; 85379; 87040; 87635; 93005; 94640; 94664; 94760; 96365; 96366; 96367; 96372; 96374; 96375; 96376; 99220; 99284; G0378; J0132; J0360; J1335; J1650; J1956; J2060; J2270; J3490; Q9963; U0003